=== PATIENT | female | born 1925 | race Caucasian/White ===

== ENCOUNTER → 2016-07-03 | Outpatient (CLI) | payer MEDICARE, BC ==
[~2016-07-03] MED LIST: 1-ME1LIQ PO; ARIC5TAB PO; HYZA100T6 PO; LATA.005%O OU; LEVO.025 PO; MELA5TAB13 PO; PRED5TAB PO; TIMO0.5S29 RIGHT EYE; VENL75 PO
== END ==
LOC: CLAB 15:08
PROVIDERS: ATTEND Allergy & Immunology
DX: M31.6 Other giant cell arteritis (principal)
CPT/HCPCS: 36415; 85652; 86140